=== PATIENT | female | born 1985 | race Caucasian/White ===

== ENCOUNTER 2020-08-24 19:32 | Emergency (ER) | payer MEDICAID, SELFPAY ==
[2020-08-24 19:36] VITALS: BP 131/88; PULSE 110; RESP 18; TEMP 37.6; O2SAT 98; BMI 26.9
[2020-08-24] MEDS: Ibuprofen 600 MG TABLET PO (19:42)
[2020-08-24 21:36] VITALS: BP 129/79; PULSE 111; RESP 18; TEMP 36.8
--- NOTE | 2020-08-24 21:56 | PC.NURSE ---
lungs clear rafaela. sat 100% on room air. talking in full sentences.
[2020-08-24 22:00] VITALS: BP 121/76; PULSE 102; RESP 16; TEMP 36.4; O2SAT 100
--- NOTE | 2020-08-24 22:21 | ED.GENADULT ---
HPI - General Adult General Chief complaint: Upper Respiratory Symptoms Stated complaint: sob after second covid shot Time Seen by Provider: 08/24/20 22:21 Source: patient Mode of arrival: ambulatory History of Present Illness HPI narrative: 35-year-old female without significant past medical history other than asthma comes in with complaints of nasal congestion, sore throat, cough and subjective fevers as started yesterday after her 2nd dose of COVID on Saturday. Otherwise she denies any body aches, ear pain, wheezing. Related Data Allergies Allergy/AdvReac Type Severity Reaction Status Date / Time No Known Allergies Allergy Verified 08/24/20 19:35 Review of Systems Review of Systems: Pertinent positives and negatives as stated in HPI 10 point review of systems otherwise negative. [facility] Past Medical History Source: nursing notes reviewed Medical History No known health problems Social History Social History Advance Directives: No Advance Directives Information Provided: Yes Patient : No Physical Exam Vital Signs: Vital Signs: Last Vital Signs Temp 98.2 F 08/24/20 21:36 Pulse 111 H 08/24/20 21:36 Resp 18 08/24/20 21:36 BP 129/79 08/24/20 21:36 Pulse Ox 98 08/24/20 19:36 Body Mass Index 26.9 VITAL SIGNS: Reviewed. GENERAL: Well developed, well nourished, in no acute distress. HEAD: Normocephalic/atraumatic EYES: PERRLA, EOMI EARS: Ext canals without abnormality, TMs non-bulging and non-erythematous NOSE: Bilateral nasal congestion OROPHARYNX: no oral lesions noted, posterior pharynx clear and non-erythematous without noted tonsillar enlargement/erythema/exudates, cobblestoning noted in the posterior pharynx NECK: Supple, no adenopathy LUNGS: Normal breath sounds. No adventitious sounds or accessory muscle use. SpO2<98> CARDIOVASCULAR: Regular rate and rhythm without noted murmurs ABDOMEN: Soft, non-tender, non-distended with bowel sounds. SKIN: Inspection of the skin reveals no rashes NEUROLOGIC: Alert and oriented x 4. Course Course Course Narrative: This is a 35-year-old female with history and clinical presentation consistent with allergic rhinitis and low clinical suspicion for COVID-19 and no evidence to support asthma exacerbation. Patient was informed of all results and discharged home in stable condition. Discharge Plan Discharge Clinical Impression: Allergic rhinitis, Nasal congestion Patient Disposition: Home, Self-Care Instructions: Allergic Rhinitis (ED), Postnasal Drip (DC) Additional Instructions: 1. Recommend trying rjyx-jry-pyatpov decongestant such as Claritin-D as well as hqzm-kjt-trvodar Flonase (and use as directed on the outside packaging). 2. Follow-up with your primary care provider in the next 2-3 days for re-evaluation. Return to the ER for any acute worsening of symptoms. Referrals: Physician,None [Primary Care Provider] - 2 days
== END 2020-08-24 22:42 | disposition home or self-care (01) ==
PROVIDERS: Emergency Provider Student in an Organized Health Care Education/Training Program
DX: J30.9 Allergic rhinitis, unspecified (principal)
CPT/HCPCS: 99283; 99284

== ENCOUNTER 2021-01-22 21:40 | Emergency (ER) | payer MEDICAID, SELFPAY ==
--- NOTE | ~2021-01-22 | XR_ITS ---
EXAMINATION: CR X-RAY KNEE BILATERAL CLINICAL INFORMATION: Bilateral knee pain. COMPARISON: Right knee radiographs dated 10/24/2015. TECHNIQUE: 4 views each of the bilateral knees were obtained. FINDINGS: No significant tricompartmental degenerative joint changes are seen. There is no acute fracture or dislocation. There is no joint effusion. The soft tissues are unremarkable. XR/XR knee LT 3V IMPRESSION: Unremarkable bilateral knees.
--- NOTE | ~2021-01-22 | XR_ITS ---
EXAMINATION: CR X-RAY KNEE BILATERAL CLINICAL INFORMATION: Bilateral knee pain. COMPARISON: Right knee radiographs dated 10/24/2015. TECHNIQUE: 4 views each of the bilateral knees were obtained. FINDINGS: No significant tricompartmental degenerative joint changes are seen. There is no acute fracture or dislocation. There is no joint effusion. The soft tissues are unremarkable. XR/XR knee RT 3V IMPRESSION: Unremarkable bilateral knees.
[2021-01-22 21:42] VITALS: BP 137/67; PULSE 114; RESP 18; TEMP 36.6; O2SAT 100; BMI 28.2
--- NOTE | 2021-01-22 22:27 | ED_ITS ---
HPI - Extremity Problem General Chief complaint: Extremity Problem <SANDRA Nuno - Last Filed: 01/22/21 23:23> Stated complaint: knee pain <SANDRA Nuno - Last Filed: 01/22/21 23:23> Time Seen by Provider: 01/22/21 21:46 <SANDRA Nuno - Last Filed: 01/22/21 23:23> Source: patient <SANDRA Nuno - Last Filed: 01/22/21 23:23> Mode of arrival: ambulatory <SANDRA Nuno - Last Filed: 01/22/21 23:23> Limitations: no limitations <SANDRA Nuno - Last Filed: 01/22/21 23:23> History of Present Illness HPI Narrative: 35-year-old female past medical history significant for asthma presents to the emergency department with right-sided knee pain and swelling x2 months progressively worsening over the past 4 days. Patient states that it hurts more with walking and movement, better at rest. She states she has noted swelling to the area that has been progressively worsening, she denies any overlying skin changes and trauma to the area. She states she has never had any procedures to the right knee, and she has never had trauma to the area even previously. She states that the pain is a 10/10 with movement and walking and it feels like a sharp stabbing pain, it is intermittent in nature and it is so severe that at times she feels like she is going to fall. She denies calf pain, shortness of breath, chest pain, fevers, chills, nausea, vomiting, abdominal pain, weakness, changes in vision, paresthesias, numbness. <SANDRA Nuno - Last Filed: 01/22/21 23:23> MD Complaint: joint swelling (right knee ) and joint paint (right knee ) <SANDRA Nuno - Last Filed: 01/22/21 23:23> Onset (ago): month(s) (2) <SANDRA Nuno - Last Filed: 01/22/21 23:23> Pain Consistency: intermittent <SANDRA Nuno - Last Filed: 01/22/21 23:23> Location: right <SANDRA Nuno - Last Filed: 01/22/21 23:23> Severity scale (1-10): 10 <SANDRA Nuno - Last Filed: 01/22/21 23:23> Quality: stabbing and sharp <SANDRA Nuno - Last Filed: 01/22/21 23:23> Radiation: none <SANDRA Nuno - Last Filed: 01/22/21 23:23> Exacerbating factors: range of motion, weight bearing and walking <SANDRA Nuno - Last Filed: 01/22/21 23:23> Associated symptoms: denies other symptoms <SANDRA Nuno - Last Filed: 01/22/21 23:23> Related Data Home medications: Previous Rx's Medication Instructions Recorded oxycodone 5 mg capsule 5 mg PO Q8H PRN #6 cap 01/22/21 <SANDRA Nuno - Last Filed: 01/22/21 23:23> Allergies/Adverse reactions: Allergies Allergy/AdvReac Type Severity Reaction Status Date / Time No Known Allergies Allergy Verified 08/24/20 19:35 <SANDRA Nuno - Last Filed: 01/22/21 23:23> Review of Systems Review of Systems: Constitutional : No Weight loss, No Fever, No Chills, No Fatigue, No Malaise ENT/Mouth : No sore throat, No Rhinorrhea Eyes: No Eye Pain, No Swelling, No Redness Cardiovascular : No Chest Pain, No SOB, No Dyspnea on Exertion, No Orthopnea, No Edema, No Palpitations Respiratory : No Cough, No Sputum, No Wheezing Gastrointestinal : No Nausea, No Vomiting, No Diarrhea, No Constipation, No abdominal Pain, No Hematochezia, No Melena Genitourinary : No Dysuria, No Urinary Frequency, No Hematuria, Musculoskeletal : + joint pain, No Myalgias, + Joint Swelling Skin : No Skin Lesions, No rash Neuro : No Weakness, No Numbness, No Dizziness, No Headache All other systems reviewed and are negative <SANDRA Nuno - Last Filed: 01/22/21 23:23> [facility] Past Medical History Attestation statement: The following information was validated with the patient. <SANDRA Nuno - Last Filed: 01/22/21 23:23> Source: old records reviewed and nursing notes reviewed <SANDRA Nuno - Last Filed: 01/22/21 23:23> Medical History: Medical History No known health problems <SANDRA Nuno - Last Filed: 01/22/21 23:23> Social History Social History: Social History Advance Directives: No <SANDRA Nuno - Last Filed: 01/22/21 23:23> Physical Exam Vital Signs: Vital Signs: Last Vital Signs Temp 98 F 01/22/21 21:42 Pulse 110 H 01/22/21 23:37 Resp 16 01/22/21 23:37 BP 119/80 01/22/21 23:37 Pulse Ox 99 01/22/21 23:37 Body Mass Index 28.2 <SANDRA Nuno - Last Filed: 01/22/21 23:23> Vital Signs: Last Vital Signs Temp 98 F 01/22/21 21:42 Pulse 110 H 01/22/21 23:37 Resp 16 01/22/21 23:37 BP 119/80 01/22/21 23:37 Pulse Ox 99 01/22/21 23:37 Body Mass Index 28.2 <SANDRA Guevara - Last Filed: 01/23/21 00:03> Appearance: Alert.? Oriented X3.? No acute distress.? Head: Normocephalic, atraumatic, no step-offs or deformities Eyes: Pupils equal, round and reactive to light.? ENT: Pharynx normal.? Neck: Normal inspection.? Neck supple.? CVS: Normal heart rate and rhythm.? Pulses normal.? Respiratory: No respiratory distress.? Breath sounds normal.? Abdomen: Soft and nontender.? Skin: Skin warm and dry.? Normal skin color.? Normal skin turgor.? Extremities: No lower extremity edema.? No calf ttp. 5/5 strength to bilateral upper and lower extremities. 2+ pulses to bilateral lower extremities b/l Full ROM with left and right knee. Pain with valgus and varus test to right knee. No evident tendon involvement b/l Back: No midline tenderness, no C-spine tenderness, full range of motion, no CVA tenderness bilaterally Neuro: Oriented X 3.? No motor deficit.? No sensory deficit. <SANDRA Nuno - Last Filed: 01/22/21 23:23> Course Course Course Narrative: Patient seen examined, agree with assessment and plan. <SANDRA Guevara - Last Filed: 01/23/21 00:03> Reevaluation(s) Reevaluation #1: Patient reports that she does not have a primary care provider, I have provided her with a list of primary care providers in the area and I have told her that is important that she finds 1, because she will require follow-up for her knee pain. She will also be provided with Orthopedics number, she can call and schedule an appointment if symptoms have not resolved within a week. Patient is safe for discharge with PCP follow-up I have informed her that I cannot rule out ligamentous injuries based off of my findings, and for this reason she requires prompt follow-up. She has been advised to return to the emergency department with worsening pain, fevers, chills, overlying skin changes, chest pain, shortness of breath, calf pain. Safe for discharge home with PCP and Ortho follow-up <SANDRA Nuno - Last Filed: 01/22/21 23:23> Time: 22:45 <SANDRA Nuno - Last Filed: 01/22/21 23:23> Reevaluation #2: Patient refused crutches upon discharge, she states she does not feel safe using these. She has been told to rest, ice, compress and elevate the extremity to help with swelling. She will follow-up with a PCP and/or Orthopedics. <SANDRA Nuno - Last Filed: 01/22/21 23:23> MDM - Extremity (Nontraumatic) MDM Narrative Medical decision making narrative: [id number] 35-year-old female past medical history significant for asthma presents to the emergency department with atraumatic severe, stabbing, sharp right knee pain, swelling, worse with ambulation, better at rest. She denies left knee pain to me, but mentioned it to the nurse at triage. She denies trauma to the area. Upon physical examination patient appears comfortable resting on the exam table. She was able to ambulate to the stretcher, with a bit of a limp. Lungs are clear to auscultation bilaterally. S1-S2 appreciated free of murmurs. Abdomen soft nontender nondistended. No lower extremity edema.? No calf ttp. 5/5 strength to bilateral upper and lower extremities. 2+ pulses to bilateral lower extremities b/l Full ROM with left and right knee. Pain with valgus and varus test. No evident tendon involvement. No overlying skin changes are evident edema overlying the right knee. Due to patient's history and physical exam I am unable to rule out an MCL and LCL injury. Because of this, patient will have to follow up with her primary care provider and Orthopedics to obtain an MRI if appropriate. Very unlikely that this is a blood clot, there is no calf tenderness of palpation, patient does not report calf pain, there is no swelling to lower extremities. Plan at this time is to obtain x-ray of the right knee. <SANDRA Nuno Last Filed: 01/22/21 23:23> Critical Care Time Critical Care Time Critical Care Time: No <SANDRA Nuno Last Filed: 01/22/21 23:23> Discharge Plan Discharge Clinical Impression: Knee pain, right, Knee strain <SANDRA Nuno Last Filed: 01/22/21 23:23> Patient Disposition: Home, Self-Care <SANDRA Nuno Last Filed: 01/22/21 23:23> Instructions: Knee Pain (ED) <SANDRA Nuno Last Filed: 01/22/21 23:23> Additional Instructions: Take your medications as prescribed. Follow-up with a primary care provider this week. I have given you a list of primary care is in this area. It is important that you follow-up with a primary care provider Return to the emergency department with new or worsening symptoms. In case of emergency call 911 <SANDRA Nuno Last Filed: 01/22/21 23:23> Prescriptions: New oxycodone 5 mg capsule 5 mg PO Q8H PRN (Reason: pain) Qty: 6 RF: 0 <SANDRA Nuno - Last Filed: 01/22/21 23:23> Referrals: Seng Angelo MD [Physician] - 1 week <SANDRA Nuno - Last Filed: 01/22/21 23:23> Interventions: ED Discharge Assessment Last Done: 01/22/21 23:38 <SANDRA Nuno - Last Filed: 01/22/21 23:23> Discharge Date/Time: 01/22/21 23:39 <SANDRA Nuno - Last Filed: 01/22/21 23:23>
--- NOTE | 2021-01-22 23:02 | PC.NURSE ---
Bakari wrap applied, pt refusing crutches, states I don't feel safe taking them home. JERMAINE aware.
[2021-01-22] MEDS: Ketorolac Tromethamine 15 MG/ML VIAL 30 MG IM (23:03)
[2021-01-22 23:37] VITALS: BP 119/80; PULSE 110; RESP 16; O2SAT 99
== END 2021-01-22 23:39 | disposition home or self-care (01) ==
PROVIDERS: Emergency Provider Emergency Medicine
DX: S86.911A Strain of unspecified muscle(s) and tendon(s) at lower leg level, right leg, initial encounter (principal); X58.XXXA Exposure to other specified factors, initial encounter; Y93.9 Activity, unspecified; Y92.9 Unspecified place or not applicable; Y99.9 Unspecified external cause status
CPT/HCPCS: 73562; 96372; 99284; J1885

== ENCOUNTER 2021-02-08 15:05 | Emergency (ER) | payer MEDICAID, SELFPAY ==
--- NOTE | ~2021-02-08 | XR_ITS ---
EXAMINATION: LEFT HAND CLINICAL INFORMATION: Hand pain for days COMPARISON: None TECHNIQUE: 4 views of left hand and wrist FINDINGS: No fracture. No dislocation. No focal bone lesion or abnormal periosteal reaction. Joint spaces are normal. There is no soft tissue abnormality. XR/XR hand wrist LT IMPRESSION: Normal left hand.
[2021-02-08 15:21] VITALS: BP 146/71; PULSE 130; RESP 18; TEMP 36.3; O2SAT 99; BMI 25.4
--- NOTE | 2021-02-08 15:28 | ECG_ITS ---
Test Reason : TACARDYA Blood Pressure : / mmHG Vent. Rate : 148 BPM Atrial Rate : 148 BPM P-R Int : 126 ms QRS Dur : 072 ms QT Int : 262 ms P-R-T Axes : 064 049 054 degrees QTc Int : 411 ms Sinus tachycardia Otherwise normal ECG When compared with ECG of 18-NOV-2012 22:12, Vent. rate has increased BY 56 BPM Criteria for Septal infarct are no longer Present Referred By: Generic ED Physician Electronically Signed By:JULIANO MURRELL
[2021-02-08 16:00] VITALS: BP 151/77; PULSE 141; RESP 16; TEMP 36.8; O2SAT 97
--- NOTE | 2021-02-08 16:15 | PC.NURSE ---
PATIENT WAS HOOKED UP TO PRODUCTION SUPPORT MANAGER BY THIS PCT.
[2021-02-08] MEDS: LORazepam 1 MG TABLET PO (16:31)
[2021-02-08] MEDS: Ibuprofen 800 MG TABLET PO (16:32)
[2021-02-08] MEDS: oxyCODONE HCl Immed Release 5 MG TABLET PO (16:32)
--- NOTE | 2021-02-08 17:20 | ED_ITS ---
HPI - Extremity Injury (Upper) General Chief Complaint: Extremity Injury, Upper Stated Complaint: left wrist pain Time Seen by Provider: 02/08/21 16:05 Source: patient Mode of arrival: ambulatory Limitations: no limitations History of Present Illness HPI narrative: 35-year-old female presenting to the ED with complaints of left wrist/hand pain after she was wrestling with her and her son at home approximately 3-4 days ago and since then she has been having pain and limited range of motion. She reports associated numbness to the left little finger that is intermittent. She denies any dizziness, headaches, neck pain/injury/stiffness, chest pain or shortness of breath, dyspnea on exertion, palpitations, orthopnea, nausea/vomiting/diarrhea or constipation, abdominal pain, lower back pain, dysuria, lower extremity edema or calf tenderness or any other symptoms complaints or concerns at this time. She is noted to be hypertensive at 146/71 and tachycardic in the 130s to 140s and she reports this is related to anxiety that this always happens although she does not take any anxiety medications his only happens when she goes so doctor's office or the ER. She reports that it will get better once she leaves here. She denies any other symptoms related to this. MD complaint: injury to: left, wrist and hand Onset (ago): day(s) (3-4) Other Extremity Injury: left: hand and elbow Other injuries: none Place: home Severity: mild Relieving factors: none Exacerbating factors: movement of extremity and other (And palpation) Context: other (While resting with her son) Associated symptoms: numbness Related Data Previous Rx's Medication Instructions Recorded oxycodone 5 mg capsule 5 mg PO Q8H PRN #6 cap 01/22/21 ibuprofen 800 mg tablet 800 mg PO Q8H PRN #14 tab 02/08/21 oxycodone 5 mg tablet 5 mg PO Q6H PRN #14 tab 02/08/21 Allergies Allergy/AdvReac Type Severity Reaction Status Date / Time No Known Allergies Allergy Verified 08/24/20 19:35 Review of Systems Review of Systems: Constitutional : No Weight loss, No Fever, No Chills, No Night Sweats, No Fatigue, No Malaise ENT/Mouth : No Hearing loss, No Ear Pain, No Nasal Congestion, No Sinus Pain, No Hoarseness, No sore throat, No Rhinorrhea, No Swallowing Difficulty Eyes: No Eye Pain, No Swelling, No Redness, No Foreign Body, No Discharge, No Vision Changes Cardiovascular : No Chest Pain, No SOB, No Dyspnea on Exertion, No Orthopnea, No Edema, No Palpitations Respiratory : No Cough, No Sputum, No Wheezing, No Smoke Exposure, No Dyspnea Gastrointestinal : No Nausea, No Vomiting, No Diarrhea, No Constipation, No abdominal Pain, No Hematochezia, No Melena Genitourinary : no irregular bleeding, No Dysuria, No Urinary Frequency, No Hematuria, No Urinary Incontinence, No Urgency, No Flank Pain, No Urinary Flow Changes, No Hesitancy Musculoskeletal : + joint pain, No Myalgias, No Joint Swelling Skin : No Skin Lesions, No rash Neuro : No Weakness, No Numbness, No Paresthesias, No Loss of Consciousness, No Dizziness, No Headache Psych : No Anxiety/Panic, No Depression, No SI/HI/AH/VH, No Social Issues, Heme/Lymph: No Bruising, No Bleeding,No Lymphadenopathy Endocrine : No Polyuria, No Polydipsia, No Temperature Intolerance Yes all other systems are reviewed and are negative [facility], [facility] Past Medical History Attestation statement: The following information was validated with the patient. Medical History No known health problems Social History Social History Advance Directives: No Advance Directives Information Provided: Yes Patient : No Physical Exam Vital Signs: Vital Signs: Last Vital Signs Temp 98.3 F 02/08/21 16:00 Pulse 141 H 02/08/21 16:00 Resp 16 02/08/21 16:00 BP 151/77 H 02/08/21 16:00 Pulse Ox 97 02/08/21 16:00 BMI result Body Mass Index 25.4 vital signs have been reviewed as normal and appeared to be correct. Blood pressure hypertensive 146/71 and heart rate tachycardic at 130s-145 Respiration rate normal. Temperature normal. Oxygen saturation normal. Appearance: Alert. Oriented X3. No acute distress. Head: Normal external exam. Normocephalic. Atraumatic. Eyes: PERRLA. EOMI. Conjunctiva and sclera normal. Eyelids normal. ENT: EAC normal. TM's Normal. Pharynx normal. Uvula midline. Moist mucous membranes. No trismus noted. No drooling noted. No muffled voice noted. Neck: Normal inspection. Neck supple. FROM. No adenopathy. Thyroid Normal. No meningeal signs. No neck mass noted. CVS: Patient noted to have sinus tachycardia. Heart sound normal. Pulses normal throughout. No murmurs/rales/gallops. Respiratory: No respiratory distress. Painless inspiration. Breath sounds normal. No wheezes/rales/rhonchi noted. Chest nontender. No accessory muscle usage noted or decreased air movement noted. Abdomen: Soft and nontender. Bowel sounds normal in all 4 quadrants. No distention noted. No organomegaly noted. No visible injury noted. Back: Full range of motion noted. No rashes/lesion/induration/fluctuance or signs of infection noted. Skin: Skin warm and dry. Normal skin color. Normal skin turgor. No rashes/lesions/lacerations noted. Extremities: Patient with tenderness all patients to the left wrist at the ulnar and radial aspect no obvious deformities or ligamentous or tendon injury and no tenderness to the anatomical snuffbox patient has limited range of motion with flexion due to pain otherwise no signs of infection and she has full sensation. No lower extremity edema. No calf tenderness is noted. Otherwise all other Extremities exhibit normal range of motion and nontender. Neuro: Oriented X 3. No motor deficit. No sensory deficit. Reflexes normal. Normal steady gait. No focal neuro deficits noted. Vascular: + radial pulses/+ 2 distal pedal pulses/+2 dorsalis pedis b/l. Normal cap refill. No cyanosis noted to upper extremity nails and lower extremity toes nails. Course Course Course Narrative: 35-year-old female presenting to the ED with complaints of left wrist/hand pain after she was wrestling with her and her son at [facility] approximately 3-4 days ago and since then she has been having pain and limited range of motion. She reports associated numbness to the left little finger that is intermittent. X-ray negative for any acute processes. I placed her in a cock-up wrist splint. I gave the patient Ativan 1 mg, oxycodone 5 mg and ibuprofen and she reports she feels much better she denies any cardiac-related complaints including dizziness, chest pain, nausea, shortness of breath, dyspnea on exertion, palpitations or any other symptoms related to this she reports that she would like to go home she does not want any further workup because she denies any other symptoms she reports that her heart rate will go down when she leaves here and she is requesting to leave against medical advice at this time. I explained to her that she should have further evaluation and treatment because her heart rate is high although she reports this is a common thing that happens to her when she goes to the doctor's office therefore she will be signing against medical advice at this time and she understands the risks. She is instructed to return if any new or worsening symptoms follow up with her primary care provider. MDM - Extremity Injury (Upper) Medical Records Attestation: I reviewed the patient's medical records. Imaging Data Left wrist and hand x-ray: Attestation: I personally reviewed and interpreted this imaging study as follows: Radiologist's impression: FINDINGS: No fracture. No dislocation. No focal bone lesion or abnormal periosteal reaction. Joint spaces are normal. There is no soft tissue abnormality.? XR/XR hand wrist LT IMPRESSION: Normal left hand.? ECG Data Attestation: I personally reviewed and interpreted this ECG as follows: ECG interpretation date: 02/08/21 ECG interpretation time: 04:06 Interpretation: Sinus tachycardia with ventricular rate of 148 with normal VA interval normal QRS duration normal QT/QTC interval. No acute ischemic changes are noted. Similar compared to prior EKG 11/18/2012. Discharge Plan Discharge Clinical Impression: Sprain and strain of wrist, Anxiety, Regular sinus tachycardia, Left against medical advice Patient Disposition: Left Against Medical Advice Instructions: Sprain (ED), Against Medical Advice (ED), Anxiety (ED), Tachycardia (ED) Prescriptions: New ibuprofen 800 mg tablet 800 mg PO Q8H PRN (Reason: pain) Qty: 14 RF: 0 oxycodone 5 mg tablet 5 mg PO Q6H PRN (Reason: pain) Qty: 14 RF: 0 No Action oxycodone 5 mg capsule 5 mg PO Q8H PRN (Reason: pain) Qty: 6 RF: 0 Referrals: Mary Muhammad MD [Physician] - 2 weeks (If Symptoms persist for longer than 1-2 weeks make a follow-up appointment) Print Language: Montenegrin
[2021-02-08 17:28] VITALS: BP 135/75; PULSE 141; RESP 16; O2SAT 99
--- NOTE | 2021-02-08 17:38 | PC.NURSE ---
PT WANTS TO LEAVE STATING HER HEART RATE IS UP BECAUSE SHE IS ALONE AND HER IS ON HIS WAY AND THAT WILL MAKE HER HEART RATE GO DOWN. PT WANTS TO LEAVE WITHOUT ANY FURTHER TEST ALL TEST OFFERED PT IS SIGNING OUT AMA.
== END 2021-02-08 17:42 | disposition left against medical advice (07) ==
PROVIDERS: Emergency Provider Emergency Medicine
DX: M25.532 Pain in left wrist (principal); F41.1 Generalized anxiety disorder; F43.0 Acute stress reaction; R00.0 Tachycardia, unspecified; Z79.899 Other long term (current) drug therapy
CPT/HCPCS: 73110; 73130; 93005; 99283; 99284

== ENCOUNTER 2021-11-21 15:12 | Emergency (ER) | payer OTHER, SELFPAY ==
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
[2021-11-21 16:09] VITALS: BP 150/78; PULSE 130; RESP 18; TEMP 36.6; O2SAT 100; BMI 24.3
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
[2021-11-21] MEDS: Acetaminophen 325 MG TABLET 975 MG PO (21:59)
[2021-11-21] MEDS: Ibuprofen 600 MG TABLET PO (22:00)
[2021-11-21] MEDS: Morphine Sulfate 4 MG/ML CARTRIDGE IM (22:00)
== END 2021-11-21 22:41 | disposition home or self-care (01) ==
PROVIDERS: Emergency Provider Emergency Medicine Emergency Medical Services
DX: S20.211A Contusion of right front wall of thorax, initial encounter (principal); S49.91XA Unspecified injury of right shoulder and upper arm, initial encounter; V43.52XA Car driver injured in collision with other type car in traffic accident, initial encounter; Y93.89 Activity, other specified; Y92.414 Local residential or business street as the place of occurrence of the external cause; Y99.9 Unspecified external cause status
CPT/HCPCS: 71101; 73030; 73070; 73120; 99283; 99284; J2270

== ENCOUNTER 2021-11-26 02:39 | Emergency (ER) | payer MEDICAID, SELFPAY ==
[2021-11-26 03:23] VITALS: BP 155/93; PULSE 139; RESP 20; TEMP 36.7; O2SAT 99; BMI 24.4
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
[2021-11-26] MEDS: hydrOXYzine HCL 25 MG TABLET PO (04:54)
--- NOTE | 2021-11-26 08:04 | ECG_ITS ---
Test Reason : TACHYCARDIA Blood Pressure : / mmHG Vent. Rate : 133 BPM Atrial Rate : 133 BPM P-R Int : 134 ms QRS Dur : 076 ms QT Int : 310 ms P-R-T Axes : 066 045 057 degrees QTc Int : 461 ms Sinus tachycardia Otherwise normal ECG When compared with ECG of 08-FEB-2021 16:06, No significant change was found Referred By: Brenda Landin Electronically Signed By:ROX KARIMI
== END 2021-11-26 04:59 | disposition home or self-care (01) ==
PROVIDERS: Emergency Provider Emergency Medicine
DX: F41.1 Generalized anxiety disorder (principal); F43.0 Acute stress reaction; F43.10 Post-traumatic stress disorder, unspecified; R20.0 Anesthesia of skin; Z79.899 Other long term (current) drug therapy
CPT/HCPCS: 93005; 99283

== ENCOUNTER 2022-07-04 00:24 | Emergency (ER) | payer MEDICAID, SELFPAY ==
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
[2022-07-04 00:26] VITALS: BP 152/85; PULSE 123; RESP 20; TEMP 36.3; O2SAT 97; BMI 22.8
--- NOTE | 2022-07-04 01:33 | ED.EXTPRO ---
HPI - Extremity Problem General Chief complaint: Extremity Injury, Upper Stated complaint: Right chest pain/ Right hand pain Time Seen by Provider: 07/04/22 01:07 History of Present Illness HPI Narrative: Patient is a 37-year-old female presents today with having pain to the right wrist right elbow right shoulder patient was wrestling with her significant other when she twisted her wrist. Subsequently patient was lifting some luggage is for her brother and then had pain to the shoulder. Patient denies any trauma to the area. Denies any systemic complaints. Pain is made worse with movement. Related Data Previous Rx's Medication Instructions Recorded oxycodone 5 mg capsule 5 mg PO Q8H PRN pain #6 caps 01/22/21 ibuprofen 800 mg tablet 800 mg PO Q8H PRN pain #14 tabs 02/08/21 oxycodone 5 mg tablet 5 mg PO Q6H PRN pain #14 tabs 02/08/21 morphine 15 mg immediate release 15 mg PO Q4-6H PRN pain #14 tabs 11/21/21 tablet hydroxyzine HCl 25 mg tablet 25 mg PO Q6-8H PRN anxiety #30 tabs 11/26/21 ibuprofen 400 mg tablet 400 mg PO Q6H PRN pain #20 tabs 07/04/22 Allergies Allergy/AdvReac Type Severity Reaction Status Date / Time No Known Allergies Allergy Verified 11/26/21 03:23 Review of Systems Review of Systems: Positive pain to the right wrist. No pain prior to the incident. Pain to the shoulder Yes all other systems are reviewed and are negative PMFSH Past Medical History Attestation statement: The following information was validated with the patient. Medical History No known health problems Social History Social History (Updated 11/26/21 @ 04:52 by Brenda Landin DO) Patient Tobacco Use Status: Never used Tobacco Advance Directives: No Advance Directives Information Provided: Yes Physical Exam Vital Signs: Vital Signs: Last Vital Signs Temp 97.4 F 07/04/22 00:26 Pulse 123 H 07/04/22 00:26 Resp 20 07/04/22 00:26 BP 152/85 H 07/04/22 00:26 Pulse Ox 97 07/04/22 00:26 O2 Del Method Room Air 07/04/22 00:26 BMI result Body Mass Index 22.8 Appearance: Alert. Oriented X3. No acute distress. Eyes: Pupils equal, round and reactive to light. ENT: Pharynx normal. Neck: Normal inspection. Neck supple. No lymph nodes noted. No crepitus CVS: Normal heart rate and rhythm. Pulses normal. Normal S1 and S2 Respiratory: No respiratory distress. Breath sounds normal. No Wheezing. No rales Abdomen: Soft and nontender. No rigidity. No distention. good BS x4 Skin: Skin warm and dry. Normal skin color. Normal skin turgor. Extremities: No lower extremity edema. Neurovascular intact to all extremities. No Lacerations. No Rash. Examination of the right wrist showed no anatomical snuffbox tenderness. Pain on flexion extension of the wrist. No gross edema noted. No redness noted. Distally movement of the fingers intact. Sensation over the median radial ulnar nerve intact. Capillary refill less than 2 seconds. Examination of the shoulder show good range of motion. There is good sensation over the axillary nerve skin was intact. Examination of the elbow show good range of motion. No gross joint swelling. Skin was intact Neuro: Oriented X 3. No motor deficit. No sensory deficit. Moving all extermities. No slurred speech Medical Decision Making Medical Decision Making MDM Narrative: X-ray was done of the elbow wrist and shoulder. They are all grossly negative. No acute evidence of fracture. Given patient had pain to the wrist. Pain on movement. Although the initial x-ray was negative. Explained to patient the need for re-x-ray of symptoms not improve within the next few days. Will have patient follow up Orthopedics for an occult injury. sHe is in stable condition. There is no chest pain or shortness of breath no nausea no vomiting no systemic complaints. Differential Diagnosis Differential Diagnoses: The differential diagnosis associated with the presentation includes Fracture, sprain Independent Interpretation I performed an independent interpretation of an: Plain X-Ray Interpretation: X-ray of shoulder elbow wrist were negative Radiology Impression Discussion of test interpretation with radiology: I have reviewed the radiologist's reading. Discharge Plan Discharge Clinical Impression: Sprain and strain of wrist Patient Disposition: Home, Self-Care Instructions: Wrist Injury (ED), Sprain (ED), Wrist Sprain (ED) Prescriptions: New ibuprofen 400 mg tablet 400 mg PO Q6H PRN (Reason: pain) Qty: 20 0RF No Action oxycodone 5 mg capsule 5 mg PO Q8H PRN (Reason: pain) Qty: 6 0RF Rx Instructions: Patient can partially fill prescription upon request morphine 15 mg tablet 15 mg PO Q4-6H PRN (Reason: pain) Qty: 14 0RF Rx Instructions: Patient may request partial fill; Partial Fill upon patient request. ibuprofen 800 mg tablet 800 mg PO Q8H PRN (Reason: pain) Qty: 14 0RF oxycodone 5 mg tablet 5 mg PO Q6H PRN (Reason: pain) Qty: 14 0RF hydroxyzine HCl 25 mg tablet 25 mg PO Q6-8H PRN (Reason: anxiety) Qty: 30 0RF Referrals: Seng Angelo MD [Physician] - 07/06/22
[2022-07-04] MEDS: Ibuprofen 400 MG TABLET PO (01:55)
[2022-07-04 01:56] VITALS: BP 144/76; PULSE 101; RESP 18; TEMP 36.4; O2SAT 97
== END 2022-07-04 01:59 | disposition home or self-care (01) ==
PROVIDERS: Emergency Provider Emergency Medicine Emergency Medical Services
DX: R07.89 Other chest pain (principal); M25.531 Pain in right wrist; M25.511 Pain in right shoulder
CPT/HCPCS: 73030; 73060; 73100; 99283; 99284

== ENCOUNTER 2022-08-22 19:41 | Emergency (ER) | payer MEDICAID, SELFPAY ==
--- NOTE | ~2022-08-22 | XR_ITS ---
EXAMINATION: XR CHEST CLINICAL INFORMATION: Chest pain COMPARISON: 11/21/2021 TECHNIQUE: 2 views of the chest were obtained. FINDINGS: Normal symmetric lung volumes. No parenchymal consolidation. No pleural effusion. No pneumothorax. Cardiomediastinal silhouette and pulmonary vascularity are within normal limits. No acute osseous abnormalities. XR/XR chest 2V IMPRESSION: Clear lungs
--- NOTE | 2022-08-22 19:44 | ECG_ITS ---
Test Reason : REPEAT Blood Pressure : / mmHG Vent. Rate : 122 BPM Atrial Rate : 122 BPM P-R Int : 138 ms QRS Dur : 072 ms QT Int : 334 ms P-R-T Axes : 072 057 063 degrees QTc Int : 475 ms Sinus tachycardia Otherwise normal ECG When compared with ECG of 26-NOV-2021 03:11, No significant change was found Referred By: Tal Mclean Electronically Signed By:EVELYN RODRIGUEZ MD
[2022-08-22 20:12] VITALS: BP 159/83; PULSE 140; RESP 18; TEMP 36.8; O2SAT 100; BMI 24.7
--- NOTE | 2022-08-22 20:12 | ED.CHESTPAIN ---
HPI - Chest Pain General Stated Complaint: chest pain Related Data Previous Rx's Medication Instructions Recorded oxycodone 5 mg capsule 5 mg PO Q8H PRN pain #6 caps 01/22/21 ibuprofen 800 mg tablet 800 mg PO Q8H PRN pain #14 tabs 02/08/21 oxycodone 5 mg tablet 5 mg PO Q6H PRN pain #14 tabs 02/08/21 morphine 15 mg immediate release 15 mg PO Q4-6H PRN pain #14 tabs 11/21/21 tablet hydroxyzine HCl 25 mg tablet 25 mg PO Q6-8H PRN anxiety #30 tabs 11/26/21 ibuprofen 400 mg tablet 400 mg PO Q6H PRN pain #20 tabs 07/04/22 Allergies Allergy/AdvReac Type Severity Reaction Status Date / Time No Known Allergies Allergy Verified 11/26/21 03:23 [facility] Past Medical History Medical History No known health problems Social History Social History (Updated 11/26/21 @ 04:52 by Brenda Landin DO) Patient Tobacco Use Status: Never used Tobacco Course Course Course Narrative: RME - 37 yo female presents to the ER for evaluation of 05/18, nonradiating substernal chest pain and SOB that started today after work, 4:30pm. Symptoms are worse with exertion. Dyspnea with speaking. Not on OCP. HR 130s in triage. HX sinus tachycardia on last EKGs done in 2020 and 2021. Reports history of anxiety and is on hydroxyzine. Took one a few minutes ago with no improvement. Plan: EKG, CXR, labs Discharge Plan Discharge Prescriptions: No Action oxycodone 5 mg capsule 5 mg PO Q8H PRN (Reason: pain) Qty: 6 0RF Rx Instructions: Patient can partially fill prescription upon request morphine 15 mg tablet 15 mg PO Q4-6H PRN (Reason: pain) Qty: 14 0RF Rx Instructions: Patient may request partial fill; Partial Fill upon patient request. ibuprofen 800 mg tablet 800 mg PO Q8H PRN (Reason: pain) Qty: 14 0RF oxycodone 5 mg tablet 5 mg PO Q6H PRN (Reason: pain) Qty: 14 0RF hydroxyzine HCl 25 mg tablet 25 mg PO Q6-8H PRN (Reason: anxiety) Qty: 30 0RF ibuprofen 400 mg tablet 400 mg PO Q6H PRN (Reason: pain) Qty: 20 0RF
[2022-08-22 21:45] LABS: MANUAL DIFF FLAG NO
[2022-08-22 21:46] LABS: Basophils Percent Auto 0.2 % (0-2); Eosinophils Absolute Auto 0.1 X10*3/uL (0.0-0.4); Eosinophils Percent Auto 0.9 % (0-4); Hematocrit 35.4 % (37.0-47.0); Hemoglobin 11.6 g/dl (12.0-16.0); Imm Gran Abs Auto 0.02 X10*3/uL (0.00-0.03); Imm Gran Pct Auto 0.3 % (0.0-0.4); Lymphocytes Absolute Auto 2.5 X10*3/uL (1.2-4.9); Lymphocytes Percent Auto 42.9 % (20-40); Mean Corpuscular HGB Conc 32.8 g/dl (31.0-35.0); Mean Corpuscular Hemoglobin 26.4 pg (27.0-33.0); Mean Corpuscular Volume 80.6 fL (80.0-98.0); Mean Platelet Volume 10.3 fL (9.4-12.3); Monocytes Absolute Auto 0.5 X10*3/uL (0.1-1.2); Monocytes Percent Auto 7.9 % (2-11); Neutrophils Absolute Auto 2.8 x10*3/uL (2.0-8.3); Neutrophils Percent Auto 47.8 % (45-73); Platelet Count 185 X10*3/uL (160-400); Red Blood Count 4.39 X10*6/uL (4.20-5.50); Red Cell Distribution Width 12.9 % (11.0-16.0); White Blood Count 5.8 X10*3/uL (4.8-10.8)
[2022-08-22 21:52] LABS: Prothrombin Time 11.8 SEC (10.0-13.1)
[2022-08-22 21:54] LABS: Partial Thromboplastin Time 29.8 SEC (26.0-36.4)
[2022-08-22 22:18] LABS: Alanine Aminotransferase 31 U/L (0-31); Albumin Level 3.5 g/dL (3.5-5.0); Alkaline Phosphatase 219 U/L (39-117); Anion Gap 11 (12-20); Aspartate Amino Transferase 25 U/L (5-31); Bilirubin Direct 0.2 mg/dL (0.0-0.5); Bilirubin Total 0.5 mg/dL (0.0-1.0); Blood Urea Nitrogen 8 mg/dL (9-16); Calcium 8.9 mg/dL (8.4-10.2); Carbon Dioxide 27 mmol/L (22-29); Chloride 110 mmol/L (96-108); Creatinine Clr Calc Pharmacy 150.2; Estimated Glomerular Filt Rate > 60; Glucose Random 89 mg/dL (60-115); Magnesium 1.8 mg/dL (1.6-2.6); Potassium 4.1 mmol/L (3.3-5.1); Sodium 144 mmol/L (135-145); Total Protein 6.8 g/dL (6.5-8.0); Troponin-I High Sensitivity < 2.7 ng/L (<3.5-17.0)
[2022-08-22 22:32] LABS: TSH reflex Free T4 < 0.01 uIU/mL (0.32-4.0)
--- NOTE | 2022-08-22 23:01 | PC.NURSE ---
pt was called multiple times and was outside. pt just came back inside at this time and was brought right back.
[2022-08-22 23:03] LABS: Free T4 (Free Thyroxine) 3.29 ng/dL (0.71-1.85)
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
--- NOTE | 2022-08-22 23:43 | ECG_ITS ---
Test Reason : CHEST PAIN Blood Pressure : / mmHG Vent. Rate : 141 BPM Atrial Rate : 141 BPM P-R Int : 126 ms QRS Dur : 080 ms QT Int : 302 ms P-R-T Axes : 068 044 038 degrees QTc Int : 462 ms Sinus tachycardia Possible Left atrial enlargement Borderline ECG When compared with ECG of 26-NOV-2021 03:11, ST no longer elevated in Inferior leads Referred By: Tal Mclean Electronically Signed By:EVELYN RODRIGUEZ MD
[2022-08-22 23:54] LABS: D Dimer High Sensitivity 223 NG/ML
[2022-08-23 00:12] LABS: Appearance Urine Clear; Color Urine Yellow; Glucose Urine UA Negative (Negative); Leukocyte Esterase Urine Negative (Negative); Nitrite Urine Negative (Negative); PH 7.5 (5.0-9.0); Urine Blood Negative (Negative); Urine Ketones Negative (Negative); Urine Protein Negative (Neg-Trace)
[2022-08-23 00:13] VITALS: BP 150/76; PULSE 122; RESP 16; TEMP 36.6; O2SAT 100
[2022-08-23 00:13] LABS: UPreg QC Valid YES; Urine Pregnancy NEGATIVE (NEGATIVE)
[2022-08-23 00:23] LABS: Amphetamine Screen Urine Not Detected (Not Detect); Barbiturates, Urine Not Detected (Not Detect); Benzodiazepines Screen Urine Not Detected (Not Detect); Cannabinoid Screen Urine Not Detected (Not Detect); Cocaine Screen Urine Not Detected (Not Detect); Fentanyl, urine Not Detected (Not Detect); Opiate Screen Urine Not Detected (Not Detect); Phencyclidine Screen Urine Not Detected (Not Detect)
== END 2022-08-23 01:39 | disposition home or self-care (01) ==
PROVIDERS: Physician Assistant; Emergency Provider Emergency Medicine
DX: R07.9 Chest pain, unspecified (principal)
CPT/HCPCS: 36415; 71046; 80048; 80076; 80307; 81003; 81025; 83735; 84439; 84443; 84484; 85025; 85379; 85610; 85730; 93005; 99283

== ENCOUNTER 2022-09-03 01:51 | Emergency (ER) | payer MEDICAID, SELFPAY ==
[2022-09-03 02:11] VITALS: BP 141/70; PULSE 125; RESP 20; TEMP 36.4; O2SAT 100; BMI 24.2
--- NOTE | 2022-09-03 02:14 | ECG_ITS ---
Test Reason : CHEST PAIN Blood Pressure : / mmHG Vent. Rate : 119 BPM Atrial Rate : 119 BPM P-R Int : 154 ms QRS Dur : 086 ms QT Int : 326 ms P-R-T Axes : 038 054 058 degrees QTc Int : 458 ms Sinus tachycardia Minimal voltage criteria for LVH, may be normal variant ( Sokolow-[place] ) Borderline ECG When compared with ECG of 22-AUG-2022 23:47, No significant change was found Referred By: Generic ED Physician Electronically Signed By:JULIANO MURRELL
[2022-09-03 02:26] LABS: MANUAL DIFF FLAG NO
[2022-09-03 02:28] LABS: Basophils Percent Auto 0.1 % (0-2); Eosinophils Absolute Auto 0.1 X10*3/uL (0.0-0.4); Eosinophils Percent Auto 0.9 % (0-4); Hematocrit 34.7 % (37.0-47.0); Hemoglobin 11.4 g/dl (12.0-16.0); Imm Gran Abs Auto 0.01 X10*3/uL (0.00-0.03); Imm Gran Pct Auto 0.1 % (0.0-0.4); Lymphocytes Absolute Auto 3.1 X10*3/uL (1.2-4.9); Lymphocytes Percent Auto 43.8 % (20-40); Mean Corpuscular HGB Conc 32.9 g/dl (31.0-35.0); Mean Corpuscular Hemoglobin 26.5 pg (27.0-33.0); Mean Corpuscular Volume 80.7 fL (80.0-98.0); Mean Platelet Volume 10.1 fL (9.4-12.3); Monocytes Absolute Auto 0.6 X10*3/uL (0.1-1.2); Monocytes Percent Auto 8.7 % (2-11); Neutrophils Absolute Auto 3.3 x10*3/uL (2.0-8.3); Neutrophils Percent Auto 46.4 % (45-73); Platelet Count 175 X10*3/uL (160-400); Red Cell Distribution Width 13.1 % (11.0-16.0); White Blood Count 7.1 X10*3/uL (4.8-10.8)
[2022-09-03 02:44] LABS: Alanine Aminotransferase 20 U/L (0-31); Albumin Level 3.6 g/dL (3.5-5.0); Alkaline Phosphatase 176 U/L (39-117); Anion Gap 14 (12-20); Aspartate Amino Transferase 23 U/L (5-31); Bilirubin Total 0.4 mg/dL (0.0-1.0); Blood Urea Nitrogen 7 mg/dL (9-16); Calcium 8.9 mg/dL (8.4-10.2); Carbon Dioxide 24 mmol/L (22-29); Chloride 108 mmol/L (96-108); Creatinine Clr Calc Pharmacy 156.7; Estimated Glomerular Filt Rate > 60; Glucose Random 118 mg/dL (60-115); Potassium 4.5 mmol/L (3.3-5.1); Sodium 141 mmol/L (135-145); Total Protein 6.4 g/dL (6.5-8.0)
[2022-09-03 02:53] LABS: Troponin-I High Sensitivity < 2.7 ng/L (<3.5-17.0)
== END 2022-09-03 05:18 | disposition left against medical advice (07) ==
PROVIDERS: Emergency Provider Emergency Medicine
DX: F41.9 Anxiety disorder, unspecified (principal); R00.0 Tachycardia, unspecified; R06.02 Shortness of breath; R07.9 Chest pain, unspecified; Z79.899 Other long term (current) drug therapy
CPT/HCPCS: 36415; 80053; 84484; 85025; 93005; 99281; 99283

== ENCOUNTER 2022-12-01 23:47 | Emergency (ER) | payer MEDICAID, SELFPAY ==
--- NOTE | ~2022-12-01 | XR_ITS ---
EXAMINATION: XR CHEST CLINICAL INFORMATION: Shortness of breath COMPARISON: 08/23/2022 TECHNIQUE: Frontal view of the chest was obtained. FINDINGS: The lungs are clear with no focal consolidation. No evidence of pneumothorax, pulmonary edema, or pleural effusions. The cardiomediastinal silhouette is unremarkable. No acute osseous findings. XR/XR chest 1V IMPRESSION: No acute cardiopulmonary findings.
[2022-12-01 23:55] VITALS: BP 150/75; PULSE 111; RESP 22; TEMP 36.9; O2SAT 99; BMI 25.6
[2022-12-02 00:08] VITALS: BP 147/79; PULSE 112; RESP 22; TEMP 36.6; O2SAT 100
--- NOTE | 2022-12-02 00:11 | ED_ITS ---
HPI - SOB/Dyspnea General Chief Complaint: Dyspnea Stated Complaint: SoB, trouble breathing Time Seen by Provider: 12/02/22 00:06 Source: patient Mode of arrival: ambulatory Limitations: no limitations History of Present Illness HPI Narrative: Patient with history of asthma, anxiety came in for acute onset of shortness of breath with chest tightness started few hours prior to arrival feels chest tight saturating 100% but taking shallow breaths no fever no cough no history of coronary artery disease no history of PE no risk factor for PE Related Data Previous Rx's Medication Instructions Recorded oxycodone 5 mg capsule 5 mg PO Q8H PRN pain #6 caps 01/22/21 ibuprofen 800 mg tablet 800 mg PO Q8H PRN pain #14 tabs 02/08/21 oxycodone 5 mg tablet 5 mg PO Q6H PRN pain #14 tabs 02/08/21 morphine 15 mg immediate release 15 mg PO Q4-6H PRN pain #14 tabs 11/21/21 tablet hydroxyzine HCl 25 mg tablet 25 mg PO Q6-8H PRN anxiety #30 tabs 11/26/21 ibuprofen 400 mg tablet 400 mg PO Q6H PRN pain #20 tabs 07/04/22 alprazolam 0.5 mg tablet (Xanax) 0.5 mg PO BEDTIME PRN anxiety #10 12/02/22 tabs Allergies Allergy/AdvReac Type Severity Reaction Status Date / Time No Known Allergies Allergy Verified 09/03/22 02:15 Review of Systems 2 Review of Systems: Yes all other systems are reviewed and are negative PMFSH Past Medical History Medical History No known health problems Social History Social History Patient Tobacco Use Status: Never used Tobacco Smoked in Last 30 Days: No Use of substances other than those prescribed or required for medical reasons: No Advance Directives: No Advance Directives Information Provided: No Physical Exam 2 Vital Signs: Vital Signs: Last Vital Signs Temp 97.8 F 12/02/22 00:08 Pulse 112 H 12/02/22 00:08 Resp 22 H 12/02/22 00:08 BP 147/79 H 12/02/22 00:08 Pulse Ox 100 12/02/22 00:08 O2 Del Method Room Air 12/02/22 00:08 BMI result Body Mass Index 25.6 Appearance: Alert. Oriented X3. Short of breath+ saturating 100% anxious Eyes: PERRLA, No Nystagmus ENT: Pharynx normal. Oral Mucosa moist Neck: Normal inspection. Neck supple. CVS: Normal heart rate and rhythm. Pulses normal. Respiratory: Moderate respiratory distress. Equal air entry bilateral, no wheezing/rales/rhonchi Abdomen: Soft and nontender. Bowel sounds are present, no mass palpable, no CVA tenderness Skin: Skin warm and dry. Normal skin color. Normal skin turgor. Extremities: No lower extremity edema. No calf tenderness Neuro: Oriented X 3. No motor deficit. No sensory deficit.No cerebellar signs , cranial nerves II-XII intact Medications Administered Discontinued Medications Generic Name Dose Route Start Last Admin Trade Name Freq PRN Reason Stop Dose Admin Lorazepam 1 mg 12/02/22 00:37 12/02/22 00:58 Lorazepam 2 Mg/Ml Vial IVPUSH 12/02/22 00:38 1 mg ONCE ONE Administration Medical Decision Making Medical Decision Making [facility] Narrative: Patient with acute shortness of breath negative D-dimer negative low risk for PE lungs are clear chest x-ray negative for pneumothorax discharge patient home on Xanax for anxiety patient received Ativan 1 mg in the ER feeling much better Differential Diagnosis Differential Diagnoses: The differential diagnosis associated with the presentation includes Pulmonary embolus/pneumothorax/anxiety/asthma Admission/Observation Consideration of admission/observation: Escalation of care including admission/observation considered Lab Data [facility] Lab Attestation statement: I reviewed the patient's lab results. 12/02/22 00:55 12/02/22 00:44 Labs: Lab Results 12/02/22 12/02/22 Range/Units 00:44 00:55 WBC 5.7 (4.8-10.8) X10*3/uL RBC 4.09 L (4.20-5.50) X10*6/uL Hgb 10.7 L (12.0-16.0) g/dl Hct 33.2 L (37.0-47.0) % MCV 81.2 (80.0-98.0) fL MCH 26.2 L (27.0-33.0) pg MCHC 32.2 (31.0-35.0) g/dl RDW 12.8 (11.0-16.0) % Plt Count 184 (160-400) X10*3/uL MPV 10.7 (9.4-12.3) fL Immature Gran % (Auto) 0.2 (0.0-0.4) % Neut % (Auto) 41.7 L (45-73) % Lymph % (Auto) 50.1 H (20-40) % [place] % (Auto) 6.7 (2-11) % Eos % (Auto) 1.1 (0-4) % Baso % (Auto) 0.2 (0-2) % Lymph # (Auto) 2.9 (1.2-4.9) X10*3/uL [place] # (Auto) 0.4 (0.1-1.2) X10*3/uL Eos # (Auto) 0.1 (0.0-0.4) X10*3/uL Baso # (Auto) 0.0 (0.0-0.2) X10*3/uL Abs Immat Gran (auto) 0.01 (0.00-0.03) X10*3/uL Absolute Neuts (auto) 2.4 (2.0-8.3) x10*3/uL Absolute Nucleated RBC 0.000 (0.0-0.012) X10*3/uL Nucleated RBC % (auto) 0.0 (0.0-0.2) /100WBC PT 12.7 (11.1-13.3) SEC INR 1.0 (0.9-1.1) APTT 27.6 (26.0-36.4) SEC D-Dimer High Sensitivty < 150 NG/ML Sodium 140 (135-145) mmol/L Potassium 3.6 (3.3-5.1) mmol/L Chloride 110 H (96-108) mmol/L Carbon Dioxide 21 L (22-29) mmol/L Anion Gap 13 (12-20) BUN 10 (9-16) mg/dL Creatinine 0.48 L (0.5-1.4) mg/dL Estim Creat Clear Calc 163.0 Estimated GFR > 60 Random Glucose 113 (60-115) mg/dL Calcium 8.7 (8.4-10.2) mg/dL COVID-19 ([facility]) Negative (Negative) COVID-19 Clin Com See Note Independent Interpretation I performed an independent interpretation of an: EKG Interpretation: Sinus tachycardia heart rate of 90 beats per minute LVH no acute ST-T no acute ischemia Discharge Plan Discharge Clinical Impression: Panic attack Patient Disposition: Home, Self-Care Instructions: Panic Attack (ED) Additional Instructions: Continue take Atarax as needed for anxiety Alprazolam 0.5 mg for severe anxiety Prescriptions: New alprazolam [Xanax] 0.5 mg tablet 0.5 mg PO BEDTIME PRN (Reason: anxiety) Qty: 10 0RF No Action oxycodone 5 mg capsule 5 mg PO Q8H PRN (Reason: pain) Qty: 6 0RF Rx Instructions: Patient can partially fill prescription upon request morphine 15 mg tablet 15 mg PO Q4-6H PRN (Reason: pain) Qty: 14 0RF Rx Instructions: Patient may request partial fill; Partial Fill upon patient request. ibuprofen 800 mg tablet 800 mg PO Q8H PRN (Reason: pain) Qty: 14 0RF oxycodone 5 mg tablet 5 mg PO Q6H PRN (Reason: pain) Qty: 14 0RF hydroxyzine HCl 25 mg tablet 25 mg PO Q6-8H PRN (Reason: anxiety) Qty: 30 0RF ibuprofen 400 mg tablet 400 mg PO Q6H PRN (Reason: pain) Qty: 20 0RF
--- NOTE | 2022-12-02 00:14 | PC.NURSE ---
Provider in with pt.
--- NOTE | 2022-12-02 00:15 | ECG_ITS ---
Test Reason : DYSPNEA Blood Pressure : / mmHG Vent. Rate : 109 BPM Atrial Rate : 109 BPM P-R Int : 174 ms QRS Dur : 088 ms QT Int : 358 ms P-R-T Axes : 039 053 058 degrees QTc Int : 482 ms Sinus tachycardia Minimal voltage criteria for LVH, may be normal variant ( Sokolow-[place] ) Borderline ECG When compared with ECG of 03-SEP-2022 02:36, No significant change was found Referred By: Ranjit Sahni Electronically Signed By:ROX KARIMI
--- NOTE | 2022-12-02 00:23 | PC.NURSE ---
Pt ca&ox4. Pts family at bedside. Pt reports 9/10mid sternum pain that radiates to right shoulder Pt reports daughter and so sick with a cold Pt reports she has hx of depression and anxiety PLan of care ongoing.
[2022-12-02] MEDS: LORazepam 2 MG/ML VIAL 1 MG IVPUSH (00:58)
[2022-12-02 01:00] LABS: Prothrombin Time 12.7 SEC (11.1-13.3)
[2022-12-02 01:02] LABS: MANUAL DIFF FLAG NO
[2022-12-02 01:03] LABS: Partial Thromboplastin Time 27.6 SEC (26.0-36.4)
--- NOTE | 2022-12-02 01:03 | PC.NURSE ---
Pt ca&ox4. Pt medicated per may. pts family at bedside. Iv placed 20G right AC Plan of care ongoing.
[2022-12-02 01:05] LABS: D Dimer High Sensitivity < 150 NG/ML
[2022-12-02 01:06] LABS: Basophils Percent Auto 0.2 % (0-2); Eosinophils Absolute Auto 0.1 X10*3/uL (0.0-0.4); Eosinophils Percent Auto 1.1 % (0-4); Hematocrit 33.2 % (37.0-47.0); Hemoglobin 10.7 g/dl (12.0-16.0); Imm Gran Abs Auto 0.01 X10*3/uL (0.00-0.03); Imm Gran Pct Auto 0.2 % (0.0-0.4); Lymphocytes Absolute Auto 2.9 X10*3/uL (1.2-4.9); Lymphocytes Percent Auto 50.1 % (20-40); Mean Corpuscular HGB Conc 32.2 g/dl (31.0-35.0); Mean Corpuscular Hemoglobin 26.2 pg (27.0-33.0); Mean Corpuscular Volume 81.2 fL (80.0-98.0); Mean Platelet Volume 10.7 fL (9.4-12.3); Monocytes Absolute Auto 0.4 X10*3/uL (0.1-1.2); Monocytes Percent Auto 6.7 % (2-11); Neutrophils Absolute Auto 2.4 x10*3/uL (2.0-8.3); Neutrophils Percent Auto 41.7 % (45-73); Platelet Count 184 X10*3/uL (160-400); Red Blood Count 4.09 X10*6/uL (4.20-5.50); Red Cell Distribution Width 12.8 % (11.0-16.0); White Blood Count 5.7 X10*3/uL (4.8-10.8)
[2022-12-02 01:07] LABS: Anion Gap 13 (12-20); Blood Urea Nitrogen 10 mg/dL (9-16); Calcium 8.7 mg/dL (8.4-10.2); Carbon Dioxide 21 mmol/L (22-29); Chloride 110 mmol/L (96-108); Estimated Glomerular Filt Rate > 60; Glucose Random 113 mg/dL (60-115); Potassium 3.6 mmol/L (3.3-5.1); Sodium 140 mmol/L (135-145)
[2022-12-02 01:12] LABS: COVID-19 Test Negative (Negative); IDNOW Serial# BCCEAD1C
[2022-12-02 01:15] LABS: Troponin-I High Sensitivity < 2.7 ng/L (<3.5-17.0)
== END 2022-12-02 01:43 | disposition home or self-care (01) ==
PROVIDERS: Emergency Provider Internal Medicine
DX: F41.0 Panic disorder [episodic paroxysmal anxiety] (principal); R00.0 Tachycardia, unspecified; R06.02 Shortness of breath; Z20.822 Contact with and (suspected) exposure to COVID-19; Z20.828 Contact with and (suspected) exposure to other viral communicable diseases; Z79.899 Other long term (current) drug therapy
CPT/HCPCS: 36415; 71045; 80048; 84484; 85025; 85379; 85610; 85730; 87635; 93005; 96374; 99284; 99285; J2060

== ENCOUNTER → 2023-09-10 13:33 | Outpatient (BNVA) | payer SELFPAY | PROVIDERS: Visit Provider Physician Assistant Medical | DX: Z02.1 Encounter for pre-employment examination (principal) ==